=== PATIENT | female | born 1965 | race Caucasian/White ===

== ENCOUNTER → 2019-10-21 | Outpatient (REF) | payer MEDICARE | LOC: M SMT 16:48 | PROVIDERS: ATTEND Urology | DX: N39.0 Urinary tract infection, site not specified (principal) ==

== ENCOUNTER → 2022-01-17 | Outpatient (REF) | payer MEDICARE | LOC: M LAB REF 09:40 | PROVIDERS: ATTEND Physician Assistant | DX: R30.0 Dysuria (principal) ==